=== PATIENT | female | born 1975 | race Caucasian/White ===

== ENCOUNTER 2016-08-18 22:06 | Emergency (ER) | payer SELFPAY ==
[2016-08-18] MEDS ORDERED: TOBRAMYCIN 0.3% - 5 ML EYE DROPS EACH EYE ONE (22:10)
[2016-08-18] MEDS ORDERED: diphenhydrAMINE 25 MG CAPSULE PO ONE (22:10)
--- NOTE | 2016-08-18 22:15 | PDOC ---
Gen Adult / Medical Screen HPI - General Chief Complaint: General Medical Stated Complaint: LAUNDRY POD EXPLODED Date Seen by Provider: 08/18/16 Time Seen by Provider: 22:11 Source: POSITIVE: Patient Exam Limitations: POSITIVE: No limitations Nurse's Notes Reviewed & Considered: Yes - Indicators Temperature Between 95 and 101 Degrees: Yes Respirations Between 12 and 20: Yes Blood Pressure Between 100-165 (sys) and 60-100 (rogers): Yes Pulse Range Between 60-105 (100 for age > 60 years): Yes Severe Pain (Greater than 5/10 Reported): No Chest or Abdominal Pain: No Inability to Walk: No Pt Reports Active High Risk Cond. (TB/Hepatitis/HIV/Chemo): No Abnormal Mental Status: No - History of Present Illness Initial Comments: Patient had a laundry soap pod explode with residue into her left eye and on her face. She rinsed her eyes and comes in now because of continued left eye pain. In addition she has a rash on her cheeks left greater than right and on the forehead. Body Location Affected: REPORTS: Face Timing: REPORTS: Abrupt Duration: 1/2 hour Similar Symptoms Previously: No Recent Care Received: REPORTS: Denies Any Prior Injuries Related to Current Complaint?: No - Patient Home Medications Home Medications: Home Medications NK [No Home Medications Reported] 08/18/16 - Patient Allergies Allergies/Adverse Reactions: Allergies Allergy/AdvReac Type Severity Reaction Status Date / Time No Known Allergies Allergy Verified 08/18/16 22:14 Past Medical History - heen HEENT History: Denies History Cardiovascular History: Denies History Respiratory History: Denies History Gastrointestinal History: Denies History Genitourinary History: Denies History Endocrine History: Denies History Musculoskeletal History: Denies History Neurological History: Denies History Psychiatric History: Denies History Cancer History: Denies History History of MDRO: No Alcohol Use: Occasionally Substance Use Type: None Previous Surgical History: Yes ROS - Limitations ROS Limitations: No Limitations Constitution: REPORTS: Denies Symptoms Cardiovascular: REPORTS: Denies Cardiac Symptoms Respiratory: REPORTS: Denies Resp Symptoms Neurological: REPORTS: Denies Neuro Symptoms Gastrointestinal: REPORTS: Denies GI Symptoms Endocrine: REPORTS: Denies Symptoms Musculoskeletal: REPORTS: Denies MS Symptoms Genitourinary: REPORTS: Denies Symptoms Eyes: REPORTS: Eye Pain (left), Red Eyes (left) ENT: REPORTS: Denies Symptoms Skin: REPORTS: Rash (on face, cheeks and forehead.) Lympathic: REPORTS: Denies Lympathic Symptoms Immunologic: POSITIVE: Denies Symptoms Psychiatric: POSITIVE: Denies Psych Symptoms Gen Adult/Medical Screen Exam - General Appearance General Appearance: POSITIVE: Alert, Cooperative, No Acute Distress, No Evidence of Trauma - HEENT HEENT: POSITIVE: Ears Inspection Nml, Nose Inspection Nml, Other (Conjunctivae injection left eye.) - Pupils Pupil Size: 4 mm: Bilateral - Neck Neck: POSITIVE: Normal Inspection - Respiratory Respiratory: POSITIVE: No Respiratory Distress - Cardiovascular Cardiovascular: POSITIVE: Regular Rate & Rhythm - Abdomen Abdomen: Denies Tenderness: (All Quadrants) - Neurological / Psychological Mental Status: POSITIVE: Mood Normal, Affect Normal Orientation: POSITIVE: Oriented x 3 - Skin Skin: POSITIVE: Warm, Dry, Rash (Cheeks and forehead.) - Extremities Extremity: Non-Tender: (All Extremities), Normal ROM: (All Extremities), Normal Inspection: (All Extremities) Procedures - Laceration/Wound Repair Did patient have a laceration repair: No Gen Adlt/Medical Scrn Progress - Patient's Progress Re-Examine Time: 23:00 Status: POSITIVE: Improved MDM / ED Course: Patient was examined. A Terrance was applied to the left eye and 750 mL of normal saline were utilized to flush her eye. She received by mouth Benadryl. TobraDex was applied to her eye. She is discharged home with instructions for TobraDex twice a day follow up with her primary care physician. Assessment: Conjunctivitis, chemical. - Consult Counseled: POSITIVE: Patient, RE: DX, RE: Need for F/U Patient Care Time - Estimated PCT Patient Care Time (In Minutes): 30 Vital Signs - Recent Vital Signs Vital Signs: Vital Signs (Last 8 hours) Temp Pulse Resp BP Pulse Ox 08/18/16 22:06 97.7 F 89 18 120/91 96 - VS Reviewed Vital Signs Reviewed: Yes Discharge Clinical Impression: Chemical conjunctivitis Discharge Disposition: Discharged to Home Condition: Good Patient Instructions Given at Discharge: Conjunctivitis (ED)
[2016-08-18 22:29] VITALS: RESP 18; TEMP 97.7
== END 2016-08-18 23:25 | disposition home or self-care (01) ==
LOC: ER 22:06
DX: H10.212 Acute toxic conjunctivitis, left eye (principal); R21 Rash and other nonspecific skin eruption; T49.2X5A Adverse effect of local astringents and local detergents, initial encounter
CPT/HCPCS: 99282 ×2; Q0163